=== PATIENT | female | born 1955 | race Caucasian/White ===

== ENCOUNTER 2018-05-07 18:51 | Emergency (ER) | payer BC, OTHER ==
[2018-05-07] MEDS ORDERED: Ketorolac INJ* 30 MG/ML 1 ML VIAL IV PUSH ONE (19:25)
[2018-05-07] MEDS ORDERED: Piperacillin/Tazobac ADVAN(*) 3.375 GM in NS 0.9% 100 ML* 100 ML IVPB ONE (19:25)
--- NOTE | 2018-05-07 19:25 | ED ---
Upper Extremity Pain - HPI Summary HPI Summary: This is scribe Cesar Aquino documenting for attending Darian Bello MD. This patient is a 62 year old F presenting to [facility] with a chief complaint of R hand pain since 1 week ago. The patient rates the pain 5/10 in severity. She cut her 4th digit on her R hand 2 weeks ago, and it was healing well until this pain and swelling started. Patient has taken Augmentin and Advil before. She has a PMHx of a broken ankle and broken hand. She had a about 30 years ago. She drinks alcohol and used to smoke. I, Dr. Bello, personally performed the services described in this documentation as scribed in my presence, and it is both accurate and complete. - History of Current Complaint Chief Complaint: EDExtremityUpper Stated Complaint: POSSIBLE INFECTION ON RT HAND RING FINGER Time Seen by Provider: 05/07/18 18:56 Hx Obtained From: Patient Mechanism Of Injury: Incised Onset/Duration: Started Weeks Ago - about 1 week ago. Cut was 2 weeks ago. Severity Initially: Moderate Severity Currently: Moderate Pain Location: Finger - 4th digit of R hand Aggravating Factor(s): Movement Alleviating Factor(s): Nothing Associated Signs & Symptoms: Positive: Swelling - Allergies/Home Medications Allergies/Adverse Reactions: Allergies Allergy/AdvReac Type Severity Reaction Status Date / Time pentazocine [From Taljennifer] Allergy Hallucinati Verified 05/07/18 20:09 ons PMH/Surg Hx/FS Hx/Imm Hx Endocrine/Hematology History: Denies: Hx Diabetes Musculoskeletal History: Reports: Hx of Fracture(s) - Fractured ankle and fractured hand EENT History: Denies: Hx Deafness - Surgical History Surgery Procedure, Year, and Place: about 30 years ago Infectious Disease History: No Infectious Disease History: Denies: Traveled Outside the [place] in Last 30 Days - Family History Known Family History: Positive: Cardiac Disease, Hypertension, Diabetes - Social History Occupation: Employed Full-time Alcohol Use: Weekly Smoking Status (MU): Former Smoker Review of Systems Negative: Fever Positive: Other - Pain and swelling in 4th digit of R hand All Other Systems Reviewed And Are Negative: Yes Physical Exam - Summary Physical Exam Summary: VITAL SIGNS: Reviewed. GENERAL: Patient is a well-developed and nourished FEMALE who is lying comfortable in the stretcher. Patient is not in any acute respiratory distress. HEAD AND FACE: No signs of trauma. No ecchymosis, hematomas or skull depressions. No sinus tenderness. EYES: PERRLA, EOMI x 2, No injected conjunctiva, no nystagmus. EARS: Hearing grossly intact. Ear canals and tympanic membranes are within normal limits. MOUTH: Oropharynx within normal limits. NECK: Supple, trachea is midline, no adenopathy, no JVD, no carotid bruit, no c- spine tenderness, neck with full ROM. CHEST: Symmetric, no tenderness at palpation LUNGS: Clear to auscultation bilaterally. No wheezing or crackles. CVS: Regular rate and rhythm, S1 and S2 present, no murmurs or gallops appreciated. ABDOMEN: Soft, non-tender. No signs of distention. No rebound no guarding, and no masses palpated. Bowel sounds are normal. EXTREMITIES: 4th digit of R hand has decreased ROM, is swollen, is red, and has a healing wound on the proximal phlanax. There is tenderness in the metacarpal area. NEURO: Alert and oriented x 3. No acute neurological deficits. Speech is normal and follows commands. SKIN: Dry and warm Triage Information Reviewed: Yes Vital Signs On Initial Exam: Initial Vitals Temp Pulse Resp BP Pulse Ox 98.1 F 88 16 139/85 98 05/07/18 18:56 05/07/18 18:56 05/07/18 18:56 05/07/18 18:56 05/07/18 18:56 Vital Signs Reviewed: Yes Diagnostics - Vital Signs Vital Signs Temp Pulse Resp BP Pulse Ox 05/07/18 18:56 98.1 F 88 16 139/85 98 - Laboratory Result Diagrams: 05/07/18 19:42 05/07/18 19:42 Lab Statement: Any lab studies that have been ordered have been reviewed, and results considered in the medical decision making process. - Radiology Hand X-Ray Radiology Interpretation Completed By: ED Physician - Read 20:44. No fracture, no dislocations. Pending official report. Course/Dx - Course Assessment/Plan: Patient is a 62-year-old female who presents to the emergency department with a chief complaint of having pain in the right fourth digit. Patient reports that she sustained a laceration to the proximal phalanx one week ago which was healing well. However, 2 days ago she started having pain, swelling, and redness. Today, she is unable to flex the fourth finger therefore she decided to come to the emergency department. She reports she doesnt have any past medical history. Blood work without any significant abnormality except for he is out of 33, glucose of 308, lactic acidosis 3. X- ray of the hand shows no fracture dislocation. Initially the patient was given IV fluids since the patient is hyperglycemic, the patient was given Zosyn for the cellulitis. At this time I discussed the case with and Dr. Iyer from orthopedics because of the suspicion of tenosynovitis. She agrees with management up to this point and she recommends for the patient to be discharged home with a prescription for Augmentin and follow up tomorrow at her office with Dr. Lott. Because of the increased sugar negative the patient will be given fluids and she was given metformin. She declined insulin. Patient agrees with plan. Patient was instructed to return to the emergency room immediately if any of the symptoms return or worsens. Plan of care was discussed with the patient and understands and agrees. All questions were answered at patient satisfaction. There were no further complaints or concerns. - Diagnoses Differential Diagnosis/HQI/PQRI: Positive: Bursitis, Contusion, Fracture (Closed ), Strain, Sprain, Other - Tenosynovitis Provider Diagnoses: Cellulitis, Hyperglycemia - Physician Notifications Discussed Care of Patient With: Manisha Iyer - Orthopedics Time Discussed With Above Provider: 20:45 Instructed by Provider To: Other - Discharge home and have her follow up with Dr. Estevez's office tomorrow. Discharge - Sign-Out/Discharge Documenting (check all that apply): Patient Departure - D/C - Discharge Plan Condition: Stable Disposition: HOME Prescriptions: Amoxicillin/Clavulanate TAB* [Augmentin TAB 875*] 875 mg PO BID #20 tab metFORMIN* [Glucophage 1000 MG TAB *] 1,000 mg PO BID #60 tab Patient Education Materials: Cellulitis (ED), Diabetic Hyperglycemia (ED) Referrals: Judit Monique MD [Medical Doctor] - 3 Days Salazar Lott MD [Medical Doctor] - (Follow up with Dr. Lott tomorrow.) Additional Instructions: FOLLOW UP WITH YOUR PRIMARY CARE PROVIDER WITHIN ONE WEEK FOR HIGH BLOOD PRESSURE NOTED TODAY. RETURN TO THE ED FOR ANY WORSENING OR NEW SYMPTOMS
[2018-05-07 19:58] LABS: ABS Basophils 0.1 10^3/ul (0-0.2); ABS Eosinophils 0.2 10^3/ul (0-0.6); ABS Lymphocytes 2.3 10^3/ul (1.0-4.8); ABS Monocytes 0.5 10^3/ul (0-0.8); ABS Neutrophils 6.8 10^3/ul (1.5-7.7); ABS Nucleated RBC 0 10^3/ul; Eosinophil % 2.2 % (0-6); Hematocrit 42 % (35-47); Lymphocyte % 23.4 % (25-47); Mean Corpuscular HGB Conc 34 g/dl (31-36); Mean Corpuscular Hemoglobin 31 pg (27-31); Mean Corpuscular Volume 92 fL (80-97); Mean Platelet Volume 8.6 um3 (7.4-10.4); Nucleated Red Blood Cells % 0; Platelet Count 233 10^3/ul (150-450); Red Blood Count 4.55 10^6/ul (4.00-5.40); Red Cell Distribution Width 13 % (10.5-15)
[2018-05-07] MEDS ORDERED: NS 0.9% 1000 ML* 1,000 ML IV ONE (20:39)
[2018-05-07] MEDS ORDERED: metFORMIN* 500 MG TAB PO ONE (20:54)
[2018-05-07] MEDS ORDERED: Amoxicillin/Clavulanate TAB* 875 MG PO ONE ×2 (21:08→21:16)
[2018-05-07 21:47] VITALS: BP 150/86
--- NOTE | 2018-05-08 07:37 | RAD ---
HISTORY: pain, right middle finger injury, redness COMPARISONS: None VIEWS: 4, Frontal, lateral, and oblique views of the right hand FINDINGS: BONE DENSITY: Normal. BONES: There is no displaced fracture. There is no appreciable erosion or periosteal reaction. 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 ALIGNMENT: There is no dislocation. SOFT TISSUES: Unremarkable. OTHER FINDINGS: None. IMPRESSION: NO ACUTE OSSEOUS INJURY. IF SYMPTOMS PERSIST, RECOMMEND REPEAT IMAGING. R0
== END 2018-05-07 21:45 | disposition home or self-care (01) ==
LOC: ED 18:51
DX: L03.011 Cellulitis of right finger (principal); R73.9 Hyperglycemia, unspecified; Z87.891 Personal history of nicotine dependence; Z88.8 Allergy status to other drugs, medicaments and biological substances
CPT/HCPCS: 36415; 80048; 83036; 83605; 85025; 85652; 86140; 87040; 96374; 96375; 99282; A9270-GY; J1885; J2543